=== PATIENT | male | born 1950 | race Caucasian/White ===

== ENCOUNTER 2020-12-15 15:20 | Observation (INO) ==
[2020-12-15] MEDS ORDERED: Aspirin 81 MG TAB.CHEW PO STA (15:59)
[2020-12-15 16:02] LABS: Basophils % 0.3 %; Hematocrit 43.9 % (37.5-50.1); Hemoglobin 14.6 g/dL (12.9-16.9); Immature Granulocytes % 0.4 % (0-4); Lymphocytes # 0.7 K/mcL (0.6-4.6); Lymphocytes % 9.1 %; Mean Corpuscular HGB Conc 33.3 g/dL (31.6-35.5); Mean Corpuscular Hemoglobin 30.5 pg (28.0-33.3); Mean Corpuscular Volume 91.8 fL (83.0-100.0); Mean Platelet Volume 9.8 fL (9.4-12.4); Monocytes # 0.1 K/mcL (0.0-1.3); Monocytes % 1.3 %; Neutrophils # 7.1 K/mcL (1.6-8.9); Platelet Count 254 K/mcL (140-400); Red Blood Count 4.78 M/mcL (4.19-5.50); Red Cell Distribution Width 12.8 % (11.5-14.5); Segmented Neutrophils % 88.9 %
[2020-12-15 16:22] LABS: BUN/Creatinine Ratio 22 (6-26); Blood Urea Nitrogen 17 mg/dL (8-23); Calcium 9.7 mg/dL (8.6-10.3); Carbon Dioxide 24 mEq/L (23-29); Chloride 105 mEq/L (98-107); Glucose 165 mg/dL (70-105); Osmolality,Calculated 289 (280-300); Sodium 137 mEq/L (136-145); eGFR For African Americans > 60 (> 60); eGFR For Non-African Americans > 60 (> 60)
[2020-12-15 16:36] LABS: Troponin I 0.04 ng/mL (< 0.04)
[2020-12-15] MEDS ORDERED: Isovue-370 500 ML BOTTLE IVP ONE (17:00)
[2020-12-15] MEDS ORDERED: Naloxone 0.4 MG/ML INJ IVP PRN (20:06)
[2020-12-15] MEDS ORDERED: Acetaminophen 325 MG TABLET PO PRN (20:06)
[2020-12-15] MEDS ORDERED: Melatonin 3 MG TABLET PO PRN (20:06)
[2020-12-15] MEDS ORDERED: Ondansetron 4 MG/2 ML VIAL IVP PRN (20:06)
[2020-12-15] MEDS: *HR* OxyCODONE/APAP 7.5/325 TABLET PO PRN (21:48)
[2020-12-15] MEDS ORDERED: Perflutren Lipid Microsphere 1.3 ML in 0.9 % Sodium Chloride 8.7 ML IVP PRN (22:38)
[2020-12-16 02:37] LABS: Basophils % 0.1 %; Eosinophils % 0.1 %; Hematocrit 39.6 % (37.5-50.1); Hemoglobin 13.5 g/dL (12.9-16.9); Immature Granulocytes % 0.4 % (0-4); Lymphocytes # 1.4 K/mcL (0.6-4.6); Lymphocytes % 12.9 %; Mean Corpuscular HGB Conc 34.1 g/dL (31.6-35.5); Mean Corpuscular Hemoglobin 31.3 pg (28.0-33.3); Mean Corpuscular Volume 91.7 fL (83.0-100.0); Mean Platelet Volume 9.8 fL (9.4-12.4); Monocytes # 0.8 K/mcL (0.0-1.3); Monocytes % 7.2 %; Neutrophils # 8.4 K/mcL (1.6-8.9); Platelet Count 226 K/mcL (140-400); Red Blood Count 4.32 M/mcL (4.19-5.50); Red Cell Distribution Width 12.7 % (11.5-14.5); Segmented Neutrophils % 79.3 %; White Blood Count 10.6 K/mcL (4.3-11.1)
[2020-12-16 02:59] LABS: Alanine Aminotransferase 21 Units/L (7-52); Albumin 4.1 g/dL (3.5-5.7); Alkaline Phosphatase 73 Units/L (34-104); Aspartate Amino Transferase 23 Units/L (13-39); BUN/Creatinine Ratio 21 (6-26); Bilirubin,Total 0.5 mg/dL (0.3-1.0); Blood Urea Nitrogen 15 mg/dL (8-23); Calcium 9.3 mg/dL (8.6-10.3); Carbon Dioxide 24 mEq/L (23-29); Chloride 106 mEq/L (98-107); Globulin 2.1 g/dL (2.4-3.5); Glucose 162 mg/dL (70-105); Magnesium 2.1 mg/dL (1.6-2.6); Osmolality,Calculated 288 (280-300); Phosphorous 2.2 mg/dL (2.7-4.5); Potassium 3.7 mEq/L (3.5-5.1); Sodium 137 mEq/L (136-145); Total Protein 6.2 g/dL (6.4-8.9); Troponin I 0.04 ng/mL (< 0.04); eGFR For African Americans > 60 (> 60); eGFR For Non-African Americans > 60 (> 60)
[2020-12-16] MEDS ORDERED: *HR* Heparin 5,000 UNIT/ML VIAL SQ SCH (06:00)
[2020-12-16] MEDS: *HR* OxyCODONE/APAP 7.5/325 TABLET PO PRN (08:28)
[2020-12-16] MEDS ORDERED: amLODIPine 5 MG TABLET PO SCH (09:00)
[2020-12-16 14:39] VITALS: BP 140/77
[2020-12-16] MEDS ORDERED: *HR* OxyCODONE/APAP 7.5/325 TABLET PO SCH (15:00)
== END 2020-12-16 15:45 | disposition home or self-care (01) ==
LOC: 2ANU 15:20 → EMEROOARM 15:20 → SUATTDRO 18:32 → 2ANU 19:43
PROVIDERS: ADMIT Pharmacist; ATTEND Internal Medicine

== ENCOUNTER 2022-05-06 12:38 | Inpatient (IN) ==
[2022-05-06] MEDS ORDERED: *HR* Heparin 5,000 UNIT/ML VIAL IVP ONE ×2 (12:44→13:00)
[2022-05-06] MEDS ORDERED: 0.9 % Sodium Chloride 250 ML IVC ONE (12:44)
[2022-05-06] MEDS ORDERED: *HR* Heparin 5,000 UNIT/ML VIAL IVP PRN ×2 (12:44)
[2022-05-06] MEDS ORDERED: *HR* Ticagrelor 90 MG TABLET PO ONE (12:44)
[2022-05-06] MEDS ORDERED: Heparin 25,000UNIT/250ML 1/2NS 25,000 UNIT/250 ML IV.SOLN IVC SCH (12:45)
[2022-05-06 13:01] LABS: Basophils # 0.1 K/mcL (0.0-0.2); Basophils % 0.5 %; Eosinophils % 0.2 %; Hematocrit 44.7 % (37.5-50.1); Hemoglobin 14.8 g/dL (12.9-16.9); Immature Granulocytes % 0.5 % (0-4); Lymphocytes # 2.2 K/mcL (0.6-4.6); Lymphocytes % 17.7 %; Mean Corpuscular HGB Conc 33.1 g/dL (31.6-35.5); Mean Corpuscular Hemoglobin 29.7 pg (28.0-33.3); Mean Corpuscular Volume 89.6 fL (83.0-100.0); Mean Platelet Volume 9.6 fL (9.4-12.4); Monocytes # 0.7 K/mcL (0.0-1.3); Monocytes % 5.6 %; Neutrophils # 9.5 K/mcL (1.6-8.9); Platelet Count 288 K/mcL (140-400); Red Blood Count 4.99 M/mcL (4.19-5.50); Red Cell Distribution Width 12.7 % (11.5-14.5); Segmented Neutrophils % 75.5 %; White Blood Count 12.6 K/mcL (4.3-11.1)
[2022-05-06] MEDS ORDERED: *HR* FentaNYL (PF) 100 MCG/2 ML VIAL IVP STA (13:11)
[2022-05-06] MEDS ORDERED: Ondansetron 4 MG/2 ML VIAL IVP ONE (13:12)
[2022-05-06 13:13] LABS: INR 1.2; Prothrombin Time 12.9 Seconds (9.4-12.1)
[2022-05-06 13:15] LABS: Activated Partial Thrombo Time 28.8 Seconds (26.0-36.0)
[2022-05-06] MEDS ORDERED: Nitroglycerin 0.4 MG TAB.SUBL SL ONE (13:18)
[2022-05-06] MEDS ORDERED: Nitroglycerin 0.4 MG TAB.SUBL SL STA ×2 (13:20→13:21)
[2022-05-06] MEDS ORDERED: *HR* Heparin 10,000 UNIT/10 ML VIAL ONE (13:22)
[2022-05-06] MEDS ORDERED: Heparin 1,000 UNITS/500 mL 500 ML ONE (13:22)
[2022-05-06] MEDS ORDERED: 0.9 % Sodium Chloride 2,000 ML ONE (13:23)
[2022-05-06] MEDS ORDERED: Nitroglycerin 1,000 MCG/5 ML VIAL IV ONE (13:23)
[2022-05-06] MEDS ORDERED: Iopamidol - 370 200 ML INFUS..BTL ONE ×2 (13:23→14:10)
[2022-05-06 13:26] LABS: BUN/Creatinine Ratio 18 (6-26); Blood Urea Nitrogen 19 mg/dL (8-23); Calcium 10.4 mg/dL (8.6-10.3); Carbon Dioxide 24 mEq/L (23-29); Chloride 103 mEq/L (98-107); Glucose 145 mg/dL (70-105); Osmolality,Calculated 293 (280-300); Sodium 139 mEq/L (136-145); Troponin I < 0.03 ng/mL (< 0.04)
[2022-05-06] MEDS ORDERED: *HR* FentaNYL (PF) 100 MCG/2 ML VIAL ONE (13:30)
[2022-05-06] MEDS ORDERED: *HR* Midazolam HCl 2 MG/2 ML VIAL ONE (13:31)
[2022-05-06] MEDS: *HR* Ticagrelor 90 MG TABLET PO SCH (20:01)
[2022-05-06] MEDS: *HR* OxyCODONE/APAP 7.5/325 TABLET PO PRN (20:01)
[2022-05-07 04:51] LABS: Basophils % 0.4 %; Eosinophils # 0.1 K/mcL (0.0-0.6); Eosinophils % 1.2 %; Hematocrit 38.8 % (37.5-50.1); Immature Granulocytes % 0.3 % (0-4); Lymphocytes # 1.9 K/mcL (0.6-4.6); Lymphocytes % 17.5 %; Mean Corpuscular HGB Conc 32.7 g/dL (31.6-35.5); Mean Corpuscular Volume 91.5 fL (83.0-100.0); Mean Platelet Volume 9.7 fL (9.4-12.4); Neutrophils # 7.8 K/mcL (1.6-8.9); Platelet Count 202 K/mcL (140-400); Red Blood Count 4.24 M/mcL (4.19-5.50); Segmented Neutrophils % 71.6 %; White Blood Count 10.9 K/mcL (4.3-11.1)
[2022-05-07 04:54] LABS: Hemoglobin 12.7 g/dL (12.9-16.9)
[2022-05-07 05:14] LABS: BUN/Creatinine Ratio 23 (6-26); Blood Urea Nitrogen 19 mg/dL (8-23); Calcium 9.5 mg/dL (8.6-10.3); Carbon Dioxide 27 mEq/L (23-29); Chloride 104 mEq/L (98-107); Glucose 102 mg/dL (70-105); Osmolality,Calculated 286 (280-300); Potassium 4.2 mEq/L (3.5-5.1); Sodium 137 mEq/L (136-145)
[2022-05-07] MEDS: *HR* Ticagrelor 90 MG TABLET PO SCH ×2 (07:50→19:37)
[2022-05-07] MEDS ORDERED: Aspirin 81 MG TAB.CHEW PO SCH (09:00)
[2022-05-07] MEDS ORDERED: *HR* OxyCODONE/APAP 7.5/325 TABLET PO ONE ×2 (09:12→11:37)
[2022-05-07] MEDS: *HR* OxyCODONE/APAP 7.5/325 TABLET PO PRN (19:37)
[2022-05-07 21:45] VITALS: O2SAT 96
[2022-05-07 21:49] VITALS: BP 92/69; PULSE 53; TEMP 97.7
== END 2022-05-07 23:59 | disposition other institution (70) | DRG 251 ==
LOC: EMEROOARM 12:38 → 3NENU 12:38
PROVIDERS: ADMIT Internal Medicine Interventional Cardiology; ATTEND Internal Medicine Interventional Cardiology